=== PATIENT | female | born 1960 | race Caucasian/White ===

== ENCOUNTER 2022-04-19 16:32 | Emergency (ER) | payer MEDICAID ==
[~2022-04-19] VITALS: Ht 152.4 cm; Wt 79.4 kg
[2022-04-19 16:37] VITALS: BP 140/71
[2022-04-19 18:00] LABS: APPEARANCE,URINE CLEAR (CLEAR); BILIRUBIN,URINE NEGATIVE (NEGATIVE); BLOOD, URINE TRACE-I (NEGATIVE); COLOR,URINE YELLOW (YELLOW); LEUKOCYTE ESTERASE ,URINE NEGATIVE (NEGATIVE); NITRITE, URINE NEGATIVE (NEGATIVE); UGLUCOSE NEGATIVE (NEGATIVE)
[2022-04-19 18:11] LABS: OTHER CASTS, URINE None Seen /LPF (None Seen); RBC,URINE 0-5 /HPF (0-5); WBC,URINE 0-5 /HPF (0-5); YEAST,URINE Few /HPF (None Seen)
[2022-04-19] MEDS ORDERED: ACET-10509 PO (18:56)
--- NOTE | 2022-04-19 19:10 | NUR ---
Patient discharged with v/s stable. Written and verbal after care instructions given and explained. Patient verbalized understanding. Ambulatory with steady gait. All questions addressed prior to discharge. Advised to follow up with PMD.
== END 2022-04-19 19:10 | disposition home or self-care (01) ==
LOC: MED 16:32
DX: M54.50 Low back pain, unspecified (principal); M25.511 Pain in right shoulder; M79.661 Pain in right lower leg; I10 Essential (primary) hypertension; E11.9 Type 2 diabetes mellitus without complications; Z79.4 Long term (current) use of insulin; Z79.899 Other long term (current) drug therapy
CPT/HCPCS: 81001; 87086; 99283